=== PATIENT | male | born 1950 | race Caucasian/White ===

== ENCOUNTER 2017-02-13 15:33 | Emergency (ER) | payer SELFPAY ==
[2017-02-13 16:10] LABS: BASOPHILS % (AUTO) 0.7 %; EOSINOPHILS # (AUTO) 0.1 10^3/uL (0.0-0.7); EOSINOPHILS % (AUTO) 1.2 %; HCT - HEMATOCRIT 46.1 % (42.0-52.0); HGB - HEMOGLOBIN 15.2 g/dL (14.0-18.0); LYMPHOCYTES # (AUTO) 1.9 10^3/uL (1.5-3.5); LYMPHOCYTES % (AUTO) 26.9 %; MEAN CORPUSCULAR HGB CONC 33.1 g/dL (32.0-36.0); MEAN CORPUSCULAR VOLUME 87.6 fL (80.0-94.0); MEAN PLATELET VOLUME 9.1 fL (7.4-11.4); MONOCYTES # (AUTO) 0.5 10^3/uL (0.0-1.0); MONOCYTES % (AUTO) 6.4 %; NEUTROPHILS # (AUTO) 4.7 10^3/uL (1.5-6.6); NEUTROPHILS % (AUTO) 64.8 %; RED BLOOD COUNT 5.26 10^6/uL (4.70-6.10); RED CELL DISTRIBUTION WIDTH 13.4 % (12.0-15.0); UNCORRECTED WHITE BLOOD COUNT 7.2 x10^3/uL; WHITE BLOOD COUNT 7.2 x10^3/uL (4.8-10.8)
--- NOTE | 2017-02-13 16:10 | ED Physician Documentation ---
History of Present Illness - Stated complaint Stated Complaint: CHEST TIGHTNESS - Chief complaint Chief Complaint: Cardiac - Additonal information Additional information: hx from [place] 66 male prior CP with + trop but clean cath felt to have vasospasm ([facility] few yr ago) takes asa BB lipitor today was playing basketball this Am about 11 and had slight chest discomfort - no SOA diaphoresis NV - kept playing in the tournament discomfort essentially lasted all day and has finally resolved when he got here about 5 otherwise well recently no fever cough NVD leg swelling Review of Systems Constitutional: denies: Fever, Sweats Throat: denies: Sore throat Cardiac: reports: Chest pain / pressure Respiratory: denies: Dyspnea GI: denies: Abdominal Pain, Nausea, Vomiting Musculoskeletal: denies: Extremity swelling Endocrine: denies: Easy bruising / bleeding Immunocompromised: denies: Immunocompromised PD PAST MEDICAL HISTORY - Past Medical History Past Medical History: Yes Cardiovascular: High cholesterol, [place] Other Past Medical History: cardiac "spasm" - Past Surgical History Past Surgical History: Yes Cardiovascular: Other - Present Medications Home Medications: Ambulatory Orders Medication Instructions Recorded Confirmed Aspirin [Adult Low Dose Aspirin EC] 162 mg PO DAILY 02/13/17 02/13/17 Atorvastatin [Lipitor] 10 mg ORAL QPM 02/13/17 02/13/17 Metoprolol Tartrate 25 mg PO DAILY 02/13/17 02/13/17 - Allergies Allergies/Adverse Reactions: Allergies Allergy/AdvReac Type Severity Reaction Status Date / Time No Known Drug Allergies Allergy Verified 02/13/17 15:40 - Social History Does the pt smoke?: No Smoking Status: Never smoker Does the pt drink ETOH?: Yes Does the pt have substance abuse?: No - Immunizations Immunizations are current?: Yes PD ED PE NORMAL - Vitals Vital signs reviewed: Yes - General General: Alert and oriented X 3 - HEENT HEENT: PERRL - Neck Neck: Supple, no meningeal sign - Cardiac Cardiac: RRR - Respiratory Respiratory: No respiratory distress, Clear bilaterally - Abdomen Abdomen: Soft, Non tender - Derm Derm: Normal color - Extremities Extremities: Normal ROM s pain, No edema, No calf tenderness / cord - Neuro Neuro: Alert and oriented X 3, No motor deficit, No sensory deficit Results - Vitals Vitals: Vital Signs - 24 hr 02/13/17 02/13/17 02/13/17 15:37 16:00 16:17 Temperature 36.1 C L Heart Rate 49 L 45 L 46 L Respiratory 16 16 16 Rate Blood Pressure 126/78 111/72 112/67 O2 Saturation 97 95 97 Oxygen O2 Source Room air - EKG (time done) 1550 Rate: Rate (enter#) Rhythm: Sinus bradycardia (46) [place]: Normal Intervals: Normal [place] Ischemia: ST elevation c/w repol (concave up ST elev V2-V5 could be repol or possibly iischmei, not STEMi) 1631 Rate: Rate (enter#) (46) Rhythm: NSR [place]: Normal Intervals: Normal [place] Ischemia: Other (approx [address] elev similar to first EKG) - Labs Labs: Laboratory Tests 02/13/17 02/13/17 02/13/17 15:51 15:51 15:51 WBC 7.2 RBC 5.26 Hgb 15.2 Hct 46.1 MCV 87.6 MCH 29.0 MCHC 33.1 RDW 13.4 Plt Count 190 MPV 9.1 Neut # 4.7 Lymph # 1.9 [place] # 0.5 Eos # 0.1 Baso # 0.0 Absolute Nucleated RBC 0.00 Nucleated RBCs 0.0 Sodium 139 Potassium 4.0 Chloride 103 Carbon Dioxide 29 Anion Gap 7.0 BUN 19 Creatinine 1.0 Estimated GFR (MDRD) 75 L Glucose 99 Calcium 9.0 Total Bilirubin 0.7 AST 60 H ALT 36 Alkaline Phosphatase 53 Troponin I 0.98 H* Total Protein 6.4 L Albumin 4.1 Globulin 2.3 Albumin/Globulin Ratio 1.8 Lipase 33 - Rads (name of study) CXR Radiology: See rad report (NACPD - nl mediastinum) PD MEDICAL DECISION MAKING - ED course ED course: EKG changes but not STEMI not dynamic no old to compare to + trop pt already too asa today already to BBlocker today HR 40s started heparin difficult to determine from pt but he may be having some slight residual discomfort - will give 1/2 inch nitro paste as well prior care at [facility] and 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
--- NOTE | 2017-02-13 16:18 | XRAY Preliminary Report ---
Exam: XR Chest 1 View IMPRESSION: Normal single view chest. [facility] SITE ID: [id number]
--- NOTE | 2017-02-13 16:20 | XRAY Report ---
EXAM: CHEST RADIOGRAPHY EXAM DATE: 02/13/2017 04:05 PM. CLINICAL HISTORY: Chest pain. COMPARISON: None. TECHNIQUE: 1 view. FINDINGS: Lungs/Pleura: No focal opacities evident. No pleural effusion. No pneumothorax. Mediastinum: Within exam limitations, cardiomediastinal contour is normal. Other: No bony abnormalities. IMPRESSION: Normal single view chest. [facility] Referring Provider Line: [phone] SITE ID: [id number]
[2017-02-13 16:23] LABS: ALBUMIN/GLOBULIN RATIO 1.8 (1.0-2.2); BILIRUBIN,TOTAL 0.7 mg/dL (0.2-1.0); TOTAL PROTEIN 6.4 g/dL (6.7-8.2)
[2017-02-13] MEDS ORDERED: NITROGLYCERIN 2% PASTE TOP STA (16:42)
[2017-02-13] MEDS ORDERED: HEPARIN 25,000 UNITS/500 ML 500 ML IV STA (16:42)
[2017-02-13] MEDS ORDERED: HEPARIN 5,000 UNIT/ML VIAL IVP STA (16:42)
[2017-02-13] MEDS ORDERED: CLOPIDOGREL 300 MG TABLET PO STA (16:53)
[2017-02-13] MEDS ORDERED: HEPARIN 25,000 UNITS/500 ML 500 ML IV ONE (16:55)
[2017-02-13] MEDS ORDERED: HEPARIN 5,000 UNIT/ML VIAL ONE (16:55)
[2017-02-13] MEDS ORDERED: NITROGLYCERIN 2% PASTE TOP ONE (16:55)
[2017-02-13] MEDS ORDERED: CLOPIDOGREL 300 MG TABLET PO ONE (17:22)
[2017-02-13 17:24] VITALS: BP 112/62
== END 2017-02-13 17:41 | disposition short-term general hospital (02) ==
LOC: ED 15:33
DX: I21.3 ST elevation (STEMI) myocardial infarction of unspecified site (principal); R00.1 Bradycardia, unspecified; I25.2 Old myocardial infarction; Z79.82 Long term (current) use of aspirin
CPT/HCPCS: 36415; 71010; 80053; 83690; 84484; 85025; 93005; 96365; 96376; 99284; A9270

== ENCOUNTER 2017-02-13 17:32 | Outpatient (CLI) | payer SELFPAY | END 2017-02-14 17:33 | disposition short-term general hospital (02) | LOC: EMS 17:32 | PROVIDERS: ATTEND Surgery | DX: I21.3 ST elevation (STEMI) myocardial infarction of unspecified site (principal) | CPT/HCPCS: A0170; A0425; A0426 ==